=== PATIENT | female | born 1990 | race Caucasian/White ===

== ENCOUNTER 2023-05-05 20:40 | Emergency (ER) | payer SELFPAY ==
[2023-05-05] MEDS ORDERED: Sodium Chloride 0.9% 2.5 ML Syringe FLUSH PRN (23:52)
[2023-05-05] MEDS ORDERED: Sodium Chloride 0.9% 10 ML Syringe FLUSH PRN (23:52)
[2023-05-05] MEDS ORDERED: Sodium Chloride 0.9% 1,000 ML IV ONE (23:55)
[2023-05-05] MEDS ORDERED: Meclizine 25 MG Tab PO ONE (23:55)
[2023-05-06 01:07] LABS: BASOPHILS PERCENT AUTO 0.3 % (0.0-1.5); EOSINOPHILS ABSOLUTE AUTO 0.1 K/uL (0.0-0.7); HEMATOCRIT 40.2 % (36.0-46.0); HEMOGLOBIN 13.6 g/dL (12.0-16.0); LYMPHOCYTES ABSOLUTE AUTO 2.7 K/uL (0.6-2.4); MEAN CORPUSCULAR HEMOGLOBIN 31.7 pg (27.0-32.0); MEAN CORPUSCULAR HGB CONC 33.8 g/dL (31.0-37.0); MEAN CORPUSCULAR VOLUME 93.7 fL (80.0-98.0); MONOCYTES ABSOLUTE AUTO 0.6 K/uL (0.0-0.8); MONOCYTES PERCENT AUTO 7.5 % (0.0-15.0); NEUTROPHILS ABSOLUTE AUTO 5.2 K/uL (1.4-5.7); NEUTROPHILS PERCENT AUTO 60.2 % (48.0-80.0); NRBC ABSOLUTE 0 K/uL; PLATELET COUNT,PLT 312 K/uL (150-400); RED BLOOD CELL COUNT 4.29 M/uL (4.30-5.90); WHITE BLOOD CELL COUNT,WBC 8.59 K/uL (4.0-11.0)
[2023-05-06 01:15] LABS: INR 0.99 (0.86-1.11)
[2023-05-06 01:25] LABS: A/G RATIO 0.9 (0.9-1.6); ALBUMIN 3.6 g/dL (3.4-5.0); BILIRUBIN TOTAL 0.3 mg/dL (0.2-1.0); CALCIUM 9.1 mg/dL (8.5-10.1); CREATININE 0.8 mg/dL (0.6-1.0); EST CRCL DRUG DOSING (CG) 79.85 mL/min; POTASSIUM,K 3.6 mmol/L (3.5-5.1); PROTEIN TOTAL,TP 7.7 g/dL (6.4-8.2)
[2023-05-06] MEDS ORDERED: Iopamidol 755 MG/ML 500 ML Multipack Bottle IVPUSH ONE (02:40)
== END 2023-05-06 04:37 | disposition home or self-care (01) ==
LOC: MW.ED 20:40
DX: S12.100A Unspecified displaced fracture of second cervical vertebra, initial encounter for closed fracture (principal); Z88.1 Allergy status to other antibiotic agents; Z79.899 Other long term (current) drug therapy; V89.2XXA Person injured in unspecified motor-vehicle accident, traffic, initial encounter; Y92.410 Unspecified street and highway as the place of occurrence of the external cause
CPT/HCPCS: 36415; 70450; 70498; 71045; 72125; 72128; 72131; 80053; 85025; 85610; 99284; A9270; J3490; J7030; Q9967